=== PATIENT | female | born 1975 | race Two or more races ===

== ENCOUNTER 2023-02-12 21:57 | Emergency (ER) | payer BC ==
[2023-02-12] MEDS ORDERED: Sodium Chloride 0.9% 2.5 ML Syringe FLUSH PRN (22:45)
[2023-02-12] MEDS ORDERED: Sodium Chloride 0.9% 10 ML Syringe FLUSH PRN (22:45)
[2023-02-12 23:01] LABS: BASOPHILS PERCENT AUTO 0.4 % (0.0-1.5); EOSINOPHILS ABSOLUTE AUTO 0.3 K/uL (0.0-0.7); EOSINOPHILS PERCENT AUTO 5.5 % (0.0-7.0); HEMATOCRIT 18.3 % (36.0-46.0); LYMPHOCYTES ABSOLUTE AUTO 0.8 K/uL (0.6-2.4); LYMPHOCYTES PERCENT AUTO 14.6 % (16.0-40.0); MEAN CORPUSCULAR HEMOGLOBIN 29.4 pg (27.0-32.0); MEAN CORPUSCULAR HGB CONC 32.8 g/dL (31.0-37.0); MEAN CORPUSCULAR VOLUME 89.7 fL (80.0-98.0); MONOCYTES ABSOLUTE AUTO 0.4 K/uL (0.0-0.8); MONOCYTES PERCENT AUTO 6.8 % (0.0-15.0); NEUTROPHILS ABSOLUTE AUTO 4.1 K/uL (1.4-5.7); NEUTROPHILS PERCENT AUTO 72.7 % (48.0-80.0); PLATELET COUNT,PLT 261 K/uL (150-400); RED BLOOD CELL COUNT 2.04 M/uL (4.30-5.90); WHITE BLOOD CELL COUNT,WBC 5.61 K/uL (4.0-11.0)
[2023-02-12 23:06] LABS: BILIRUBIN,URINE NEGATIVE (NEGATIVE); COLOR,URINE YELLOW; GLUCOSE,URINE NEGATIVE (NEGATIVE); KETONES,URINE NEGATIVE (NEGATIVE); LEUKOCYTE ESTERASE,URINE TRACE (NEGATIVE); NITRITE,URINE NEGATIVE (NEGATIVE); OCCULT BLOOD,URINE SMALL (NEGATIVE); PH,URINE 7.5 (5.0-8.0); PROTEIN,URINE 30 mg/dL (NEGATIVE); UROBILINOGEN,URINE 0.2 EU/dL (<2.0)
[2023-02-12 23:19] LABS: APPEARANCE,URINE SLT CLOUDY
[2023-02-12 23:20] LABS: BACTERIA,URINE FEW (NEGATIVE); EPITHELIAL CELLS,URINE OCCASIONAL (NONE-FEW)
[2023-02-12 23:39] LABS: A/G RATIO 0.8 (0.9-1.6); ALBUMIN 3.1 g/dL (3.4-5.0); BILIRUBIN TOTAL 0.3 mg/dL (0.2-1.0); CALCIUM 7.1 mg/dL (8.5-10.1); CARBON DIOXIDE,CO2 21.2 mmol/L (21.0-32.0); CREATININE 14.2 mg/dL (0.6-1.0); EST CRCL DRUG DOSING (CG) 4.09 mL/min; POTASSIUM,K 4.9 mmol/L (3.5-5.1); PROTEIN TOTAL,TP 7.2 g/dL (6.4-8.2)
[2023-02-12 23:49] LABS: LACTIC ACID 0.4 mmol/L (0.4-2.0)
== END 2023-02-13 03:30 ==
LOC: MW.ED 21:57
DX: N17.9 Acute kidney failure, unspecified (principal); D64.9 Anemia, unspecified
CPT/HCPCS: 36415; 71045; 74176; 80053; 81001; 83605; 83690; 83880; 84484; 85025; 85610; 93005; 99285; J3490; 93010

== ENCOUNTER 2023-03-11 16:37 | Emergency (ER) | payer BC ==
[2023-03-11] MEDS ORDERED: Sodium Chloride 0.9% 2.5 ML Syringe FLUSH PRN ×2 (19:49→22:18)
[2023-03-11] MEDS ORDERED: Sodium Chloride 0.9% 10 ML Syringe FLUSH PRN ×2 (19:49→22:18)
[2023-03-11] MEDS ORDERED: Ondansetron 4 MG/2 ML SDV IVPUSH STA (19:50)
[2023-03-11] MEDS ORDERED: Morphine 2 MG/ML SYRINGE IVPUSH STA (19:50)
[2023-03-11] MEDS ORDERED: Acetaminophen 500 MG Tab PO STA (19:51)
[2023-03-11 20:00] LABS: BASOPHILS PERCENT AUTO 0.3 % (0.0-1.5); EOSINOPHILS ABSOLUTE AUTO 0.1 K/uL (0.0-0.7); EOSINOPHILS PERCENT AUTO 1.6 % (0.0-7.0); HEMATOCRIT 21.4 % (36.0-46.0); HEMOGLOBIN 6.9 g/dL (12.0-16.0); LYMPHOCYTES ABSOLUTE AUTO 0.8 K/uL (0.6-2.4); LYMPHOCYTES PERCENT AUTO 10.1 % (16.0-40.0); MEAN CORPUSCULAR HEMOGLOBIN 29.9 pg (27.0-32.0); MEAN CORPUSCULAR HGB CONC 32.2 g/dL (31.0-37.0); MEAN CORPUSCULAR VOLUME 92.6 fL (80.0-98.0); MONOCYTES ABSOLUTE AUTO 0.6 K/uL (0.0-0.8); MONOCYTES PERCENT AUTO 7.6 % (0.0-15.0); NEUTROPHILS ABSOLUTE AUTO 6.4 K/uL (1.4-5.7); NEUTROPHILS PERCENT AUTO 80.4 % (48.0-80.0); NRBC ABSOLUTE 0 K/uL; PLATELET COUNT,PLT 199 K/uL (150-400); RED BLOOD CELL COUNT 2.31 M/uL (4.30-5.90); WHITE BLOOD CELL COUNT,WBC 7.92 K/uL (4.0-11.0)
[2023-03-11 20:11] LABS: A/G RATIO 0.9 (0.9-1.6); ALBUMIN 3.4 g/dL (3.4-5.0); BILIRUBIN TOTAL 0.5 mg/dL (0.2-1.0); CALCIUM 8.3 mg/dL (8.5-10.1); CARBON DIOXIDE,CO2 27.5 mmol/L (21.0-32.0); CREATININE 5.9 mg/dL (0.6-1.0); EST CRCL DRUG DOSING (CG) 8.56 mL/min; PROTEIN TOTAL,TP 7.3 g/dL (6.4-8.2)
[2023-03-11] MEDS ORDERED: 50% Dextrose in Water 50 ML Syringe IVPUSH PRN (22:18)
[2023-03-11] MEDS ORDERED: 50% Dextrose in Water 50 ML Syringe IV ONE (22:18)
[2023-03-11] MEDS ORDERED: Glucagon,Human Recombinant 1 MG Vial IM PRN (22:18)
[2023-03-11] MEDS ORDERED: Albuterol 0.083% 2.5 MG/3 ML Neb Soln NEB ONE (22:18)
[2023-03-11] MEDS ORDERED: Calcium Gluconate 10% 1 GM/10 ML SDV IVPUSH ONE (22:18)
[2023-03-11] MEDS ORDERED: Insulin Regular, Human 100 Units/ML 10 ML Vial IVPUSH ONE (22:18)
[2023-03-11] MEDS ORDERED: Piperacillin/Tazobactam 3.375 GM in Sodium Chloride 0.9% 100 ML IV STA (22:35)
== END 2023-03-11 23:21 ==
LOC: MW.ED 16:37
DX: N99.522 Malfunction of incontinent external stoma of urinary tract (principal); E87.5 Hyperkalemia; N17.9 Acute kidney failure, unspecified; N13.30 Unspecified hydronephrosis; Z99.2 Dependence on renal dialysis
CPT/HCPCS: 36415; 74176; 80053; 82947; 83605; 83735; 85025; 87040; 87077; 87154; 87186; 93005; 96374; 96375; 99285; A9270; J0612; J2270; J2405; J3490; J1815-GY; J7620-GY

== ENCOUNTER 2023-04-05 17:00 | Emergency (ER) | payer BC | END 2023-04-05 19:17 | disposition home or self-care (01) | LOC: MW.ED 17:00 | DX: R78.81 Bacteremia (principal) | CPT/HCPCS: 96365; 99281; J1335; J3490 ==

== ENCOUNTER 2023-04-06 20:25 | Emergency (ER) | payer BC | END 2023-04-06 21:40 | disposition home or self-care (01) | LOC: MW.ED 20:25 | DX: Z51.81 Encounter for therapeutic drug level monitoring (principal); Z79.899 Other long term (current) drug therapy; Z99.2 Dependence on renal dialysis | CPT/HCPCS: 96365; 99281; J1335; J3490; 99283 ==

== ENCOUNTER 2023-04-07 19:58 | Emergency (ER) | payer BC | END 2023-04-07 22:10 | disposition home or self-care (01) | LOC: MW.ED 19:58 | DX: Z02.89 Encounter for other administrative examinations (principal) | CPT/HCPCS: 96374; 99281; J1335; J3490; 99282 ==

== ENCOUNTER 2024-02-20 22:41 | Emergency (ER) | payer OTHER, BC ==
[2024-02-20 23:58] LABS: BASOPHILS ABSOLUTE AUTO 0.04 K/uL (0.00-0.20); BASOPHILS PERCENT AUTO 0.3 % (0.0-1.0); EOSINOPHILS ABSOLUTE AUTO 0.28 K/uL (0.00-0.45); EOSINOPHILS PERCENT AUTO 1.9 % (0.0-6.0); HEMATOCRIT 34.7 % (37.0-47.0); HEMOGLOBIN 11.6 g/dL (12.0-16.0); IMMATURE GRAN ABSOLUTE AUTO 0.03 K/uL (0.00-0.05); IMMATURE GRAN PERCENT AUTO 0.2 % (0.0-0.4); LYMPHOCYTES ABSOLUTE AUTO 0.77 K/uL (1.00-4.80); LYMPHOCYTES PERCENT AUTO 5.3 % (24.0-44.0); MEAN CORPUSCULAR HEMOGLOBIN 31.1 pg (28.0-32.0); MEAN CORPUSCULAR HGB CONC 33.4 g/dL (32.0-36.0); MEAN PLATELET VOLUME 8.8 fL (9.4-12.3); MONOCYTES ABSOLUTE AUTO 0.77 K/uL (0.00-0.80); MONOCYTES PERCENT AUTO 5.3 % (0.0-8.0); NEUTROPHILS ABSOLUTE AUTO 12.64 K/uL (1.80-7.70); PLATELET COUNT,PLT 297 K/uL (150-400); RED BLOOD CELL COUNT 3.73 M/uL (4.10-5.30); WHITE BLOOD CELL COUNT,WBC 14.53 K/uL (3.9-11.3)
[2024-02-21] MEDS: Sodium Chloride 0.9% 1,000 ML IV ONE (00:01)
[2024-02-21] MEDS: Sodium Chloride 0.9% 10 ML Syringe FLUSH PRN (00:26)
[2024-02-21] MEDS: Sodium Chloride 0.9% 2.5 ML Syringe FLUSH PRN (00:26)
[2024-02-21 00:28] LABS: A/G RATIO 0.6 (0.9-1.6); ALANINE AMINOTRANSFERASE,ALT 23 IU/L (14-63); ALBUMIN 2.8 g/dL (3.4-5.0); ALKALINE PHOSPHATASE 156 U/L (46-116); ASPARTATE AMNIOTRANSFERASE,AST 22 IU/L (15-37); BILIRUBIN TOTAL 0.2 mg/dL (0.2-1.0); BLOOD UREA NITROGEN,BUN 33 mg/dL (7.0-18.0); CALCIUM 8.4 mg/dL (8.5-10.1); CARBON DIOXIDE,CO2 25.3 mmol/L (21.0-32.0); CHLORIDE,CL 97 mmol/L (98-107); CREATININE 2.7 mg/dL (0.6-1.0); GLUCOSE RANDOM 122 mg/dL (74-106); LIPASE 58 U/L (16-77); POTASSIUM,K 3.8 mmol/L (3.5-5.1); PROTEIN TOTAL,TP 7.4 g/dL (6.4-8.2); SODIUM,NA 133 mmol/L (136-145)
[2024-02-21] MEDS ORDERED: Bisacodyl 10 MG Supp ONE (01:50)
[2024-02-21] MEDS ORDERED: Ondansetron 4 MG/2 ML SDV ONE (01:50)
[2024-02-21] MEDS ORDERED: Bisacodyl 5 MG Tab ONE ×2 (01:50→01:51)
[2024-02-21] MEDS ORDERED: Magnesium Citrate Solution 296 ML Bottle ONE (01:50)
[2024-02-21 20:51] LABS: ESTIMATED GFR 21 mL/min (>60)
[2024-02-22] MEDS: Magnesium Citrate Solution 296 ML Bottle ONE (01:11)
[2024-02-22] MEDS: Bisacodyl 10 MG Supp ONE (01:12)
[2024-02-22] MEDS: Ondansetron 4 MG/2 ML SDV ONE (01:12)
== END 2024-02-21 06:50 | disposition home or self-care (01) ==
LOC: MW.ED 22:41
DX: K59.00 Constipation, unspecified (principal); N18.6 End stage renal disease; Z75.8 Other problems related to medical facilities and other health care; Z99.2 Dependence on renal dialysis
CPT/HCPCS: 36415; 74176; 80053; 83690; 85025; 96374; 99284; A9270; J2405; J3490

== ENCOUNTER 2024-04-10 13:56 | Emergency (ER) | payer BC, OTHER ==
[2024-04-10 15:29] LABS: BASOPHILS ABSOLUTE AUTO 0.01 K/uL (0.00-0.20); BASOPHILS PERCENT AUTO 0.2 % (0.0-1.0); EOSINOPHILS ABSOLUTE AUTO 0.34 K/uL (0.00-0.45); EOSINOPHILS PERCENT AUTO 5.6 % (0.0-6.0); HEMATOCRIT 20.9 % (37.0-47.0); HEMOGLOBIN 7.1 g/dL (12.0-16.0); IMMATURE GRAN ABSOLUTE AUTO 0.02 K/uL (0.00-0.05); IMMATURE GRAN PERCENT AUTO 0.3 % (0.0-0.4); LYMPHOCYTES ABSOLUTE AUTO 0.86 K/uL (1.00-4.80); LYMPHOCYTES PERCENT AUTO 14.2 % (24.0-44.0); MEAN CORPUSCULAR HEMOGLOBIN 31.4 pg (28.0-32.0); MEAN CORPUSCULAR VOLUME 92.5 fL (83.0-99.0); MEAN PLATELET VOLUME 9.1 fL (9.4-12.3); MONOCYTES ABSOLUTE AUTO 0.48 K/uL (0.00-0.80); MONOCYTES PERCENT AUTO 7.9 % (0.0-8.0); NEUTROPHILS ABSOLUTE AUTO 4.33 K/uL (1.80-7.70); NEUTROPHILS PERCENT AUTO 71.8 % (41.0-71.0); PLATELET COUNT,PLT 217 K/uL (150-400); RED BLOOD CELL COUNT 2.26 M/uL (4.10-5.30); WHITE BLOOD CELL COUNT,WBC 6.04 K/uL (3.9-11.3)
[2024-04-10 15:39] LABS: APPEARANCE,URINE SLT CLOUDY; BILIRUBIN,URINE NEGATIVE (NEGATIVE); COLOR,URINE BROWN; GLUCOSE,URINE NEGATIVE (NEGATIVE); KETONES,URINE NEGATIVE (NEGATIVE); LEUKOCYTE ESTERASE,URINE MODERATE (NEGATIVE); NITRITE,URINE POSITIVE (NEGATIVE); OCCULT BLOOD,URINE MODERATE (NEGATIVE); PH,URINE 7.5 (5.0-8.0); PROTEIN,URINE TRACE mg/dL (NEGATIVE); UROBILINOGEN,URINE 0.2 EU/dL (<2.0)
[2024-04-10 15:47] LABS: EPITHELIAL CELLS,URINE FEW (NONE-FEW); WBC,URINE 30-40 (0-5/HPF)
[2024-04-10 15:48] LABS: BACTERIA,URINE 3+ (NEGATIVE)
[2024-04-10 16:05] LABS: A/G RATIO 0.7 (0.9-1.6); ALANINE AMINOTRANSFERASE,ALT 13 IU/L (14-63); ALBUMIN 2.9 g/dL (3.4-5.0); ALKALINE PHOSPHATASE 107 U/L (46-116); ASPARTATE AMNIOTRANSFERASE,AST 14 IU/L (15-37); BILIRUBIN TOTAL 0.6 mg/dL (0.2-1.0); BLOOD UREA NITROGEN,BUN 60 mg/dL (7.0-18.0); CALCIUM 8.4 mg/dL (8.5-10.1); CARBON DIOXIDE,CO2 30.3 mmol/L (21.0-32.0); CHLORIDE,CL 100 mmol/L (98-107); CREATININE 4.1 mg/dL (0.6-1.0); EST CRCL DRUG DOSING (CG) 12.18 mL/min; GLUCOSE RANDOM 112 mg/dL (74-106); LIPASE 53 U/L (16-77); MAGNESIUM 2.3 mg/dL (1.8-2.4); POTASSIUM,K 4.5 mmol/L (3.5-5.1); PRO B-TYPE NATRIUR PEPT,BNPPRO 868 pg/mL (0-125); SODIUM,NA 137 mmol/L (136-145)
[2024-04-10 16:06] LABS: ESTIMATED GFR 13 mL/min (>60)
[2024-04-10] MEDS: Sodium Chloride 0.9% 2.5 ML Syringe FLUSH PRN (17:24)
[2024-04-10] MEDS: cefTRIAXone 1 GM in Sodium Chloride 0.9% 50 ML IV ONE (17:24)
[2024-04-10] MEDS: Sodium Chloride 0.9% 10 ML Syringe FLUSH PRN (17:24)
== END 2024-04-10 20:45 ==
LOC: MW.ED 13:56
DX: N32.89 Other specified disorders of bladder (principal); C79.82 Secondary malignant neoplasm of genital organs; N18.6 End stage renal disease; D63.1 Anemia in chronic kidney disease; Z90.710 Acquired absence of both cervix and uterus
CPT/HCPCS: 36415; 36430; 71250; 74176; 80053; 81001; 83690; 83735; 83880; 84484; 85025; 86850; 86900; 86901; 86920; 93005; 96365; 99285; J0696; J3490; P9016; 93010

== ENCOUNTER 2025-06-10 21:39 | Emergency (ER) | payer BC, MEDICARE ==
[2025-06-10 22:50] LABS: BASOPHILS ABSOLUTE AUTO 0.01 K/uL (0.00-0.20); BASOPHILS PERCENT AUTO 0.3 % (0.0-1.0); EOSINOPHILS ABSOLUTE AUTO 0.13 K/uL (0.00-0.45); EOSINOPHILS PERCENT AUTO 3.4 % (0.0-6.0); IMMATURE GRAN ABSOLUTE AUTO 0.01 K/uL (0.00-0.05); IMMATURE GRAN PERCENT AUTO 0.3 % (0.0-0.4); LYMPHOCYTES ABSOLUTE AUTO 0.84 K/uL (1.00-4.80); LYMPHOCYTES PERCENT AUTO 22.0 % (24.0-44.0); MEAN PLATELET VOLUME 9.6 fL (9.4-12.3); MONOCYTES ABSOLUTE AUTO 0.30 K/uL (0.00-0.80); MONOCYTES PERCENT AUTO 7.9 % (0.0-8.0); NEUTROPHILS ABSOLUTE AUTO 2.52 K/uL (1.80-7.70); NEUTROPHILS PERCENT AUTO 66.1 % (41.0-71.0); NRBC ABSOLUTE 0.00 K/uL (0.00-0.02); NRBC PERCENT 0.0 /100WBC (0.0-0.2); PLATELET COUNT,PLT 201 K/uL (150-400); RED BLOOD CELL COUNT 1.34 M/uL (4.10-5.30); WHITE BLOOD CELL COUNT,WBC 3.81 K/uL (3.9-11.3)
[2025-06-10] MEDS: droPERidol 2.5 MG/ML SDV IVPUSH ONE (22:52)
[2025-06-10 23:07] LABS: A/G RATIO 0.7 (0.9-1.6); ALANINE AMINOTRANSFERASE,ALT 14.0 IU/L (14-63); ASPARTATE AMNIOTRANSFERASE,AST 18.0 IU/L (15-37); BILIRUBIN TOTAL 0.2 mg/dL (0.2-1.0); BLOOD UREA NITROGEN,BUN 83.0 mg/dL (7.0-18.0); CARBON DIOXIDE,CO2 23.1 mmol/L (21.0-32.0); CHLORIDE,CL 102.0 mmol/L (98-107); CREATININE 5.6 mg/dL (0.6-1.0); EST CRCL DRUG DOSING (CG) 8.82 mL/min; GLUCOSE RANDOM 118.0 mg/dL (74-106); POTASSIUM,K 4.4 mmol/L (3.5-5.1); PRO B-TYPE NATRIUR PEPT,BNPPRO 788.0 pg/mL (0-125); PROTEIN TOTAL,TP 7.2 g/dL (6.4-8.2); SODIUM,NA 135.0 mmol/L (136-145)
[2025-06-10 23:08] LABS: ESTIMATED GFR 9.0 mL/min (>60)
[2025-06-11 00:13] LABS: GLUCOSE,URINE NEGATIVE (NEGATIVE); OCCULT BLOOD,URINE LARGE (NEGATIVE)
[2025-06-11 00:23] LABS: APPEARANCE,URINE HAZY; EPITHELIAL CELLS,URINE OCCASIONAL (NONE-FEW)
== END 2025-06-11 04:15 ==
LOC: MW.ED 21:39
DX: K92.2 Gastrointestinal hemorrhage, unspecified (principal); N93.9 Abnormal uterine and vaginal bleeding, unspecified; D64.9 Anemia, unspecified; N28.9 Disorder of kidney and ureter, unspecified; C76.0 Malignant neoplasm of head, face and neck; E86.0 Dehydration; Z90.710 Acquired absence of both cervix and uterus
CPT/HCPCS: 36415; 36430; 70450; 70450-26; 71045; 71045-26; 71250; 71250-26; 74176; 74176-26; 80053; 81001; 83690; 83880; 84484; 85025; 86850; 86900; 86901; 86920; 93005; 93010; 96374; 99285; 99285-25; J1790; P9016

== ENCOUNTER 2025-07-09 19:51 | Emergency (ER) | payer MEDICARE ==
[2025-07-09] MEDS ORDERED: Sodium Chloride 0.9% 2.5 ML Syringe FLUSH PRN (19:54)
[2025-07-09] MEDS ORDERED: Sodium Chloride 0.9% 10 ML Syringe FLUSH PRN (19:54)
[2025-07-09 20:26] LABS: BASOPHILS ABSOLUTE AUTO 0.01 K/uL (0.00-0.20); BASOPHILS PERCENT AUTO 0.2 % (0.0-1.0); EOSINOPHILS ABSOLUTE AUTO 0.32 K/uL (0.00-0.45); EOSINOPHILS PERCENT AUTO 7.4 % (0.0-6.0); IMMATURE GRAN ABSOLUTE AUTO 0.02 K/uL (0.00-0.05); IMMATURE GRAN PERCENT AUTO 0.5 % (0.0-0.4); LYMPHOCYTES ABSOLUTE AUTO 0.59 K/uL (1.00-4.80); LYMPHOCYTES PERCENT AUTO 13.6 % (24.0-44.0); MEAN PLATELET VOLUME 8.9 fL (9.4-12.3); MONOCYTES ABSOLUTE AUTO 0.31 K/uL (0.00-0.80); MONOCYTES PERCENT AUTO 7.2 % (0.0-8.0); NEUTROPHILS ABSOLUTE AUTO 3.08 K/uL (1.80-7.70); NEUTROPHILS PERCENT AUTO 71.1 % (41.0-71.0); NRBC ABSOLUTE 0.00 K/uL (0.00-0.02); NRBC PERCENT 0.0 /100WBC (0.0-0.2); PLATELET COUNT,PLT 241 K/uL (150-400); RED BLOOD CELL COUNT 1.94 M/uL (4.10-5.30); WHITE BLOOD CELL COUNT,WBC 4.33 K/uL (3.9-11.3)
[2025-07-09 20:39] LABS: INR 0.98 (0.86-1.11)
[2025-07-09] MEDS: Pantoprazole 80 MG in Sodium Chloride 0.9% 10 ML IVPUSH ONE (20:58)
[2025-07-09 20:59] LABS: A/G RATIO 0.7 (0.9-1.6); ALANINE AMINOTRANSFERASE,ALT 19.0 IU/L (14-63); ASPARTATE AMNIOTRANSFERASE,AST 15.0 IU/L (15-37); BLOOD UREA NITROGEN,BUN 71.0 mg/dL (7.0-18.0); CARBON DIOXIDE,CO2 23.0 mmol/L (21.0-32.0); CHLORIDE,CL 106.0 mmol/L (98-107); CREATININE 3.6 mg/dL (0.6-1.0); EST CRCL DRUG DOSING (CG) 15.11 mL/min; GLUCOSE RANDOM 117.0 mg/dL (74-106); POTASSIUM,K 4.2 mmol/L (3.5-5.1); PRO B-TYPE NATRIUR PEPT,BNPPRO 402.0 pg/mL (0-125); PROTEIN TOTAL,TP 7.1 g/dL (6.4-8.2); SODIUM,NA 140.0 mmol/L (136-145)
[2025-07-09 21:14] LABS: IRON,FE 45.0 ug/dL (50-175); PERCENT FE SATURATION 22.17 % (20-55)
[2025-07-09 21:20] LABS: BILIRUBIN DIRECT 0.1 mg/dL (0.0-0.5); BILIRUBIN INDIRECT 0.1; BILIRUBIN TOTAL 0.2 mg/dL (0.2-1.0); ESTIMATED GFR 15.0 mL/min (>60)
== END 2025-07-10 01:25 | disposition home or self-care (01) ==
LOC: MW.ED 19:51
DX: Z51.89 Encounter for other specified aftercare (principal); D50.9 Iron deficiency anemia, unspecified; R19.5 Other fecal abnormalities; K92.2 Gastrointestinal hemorrhage, unspecified; Z85.41 Personal history of malignant neoplasm of cervix uteri; Z99.2 Dependence on renal dialysis; Z93.6 Other artificial openings of urinary tract status
CPT/HCPCS: 36415; 36430; 71045; 80053; 82247; 82248; 83550; 83735; 83880; 85014; 85018; 85025; 85610; 86850; 86900; 86901; 86920; 93005; 96374; 99284; A4216; J2470; P9016; 93010